=== PATIENT | female | born 1980 | race Native Hawaiian/Other Pacific Islander ===

== ENCOUNTER 2019-02-24 20:53 | Emergency (ER) | payer OTHER ==
[~2019-02-24] VITALS: Ht 165.1 cm; Wt 72.6 kg
[2019-02-24 22:16] LABS: PLATELET COUNT 174 K/uL (152-353)
[2019-02-24] MEDS ORDERED: PHENTERMINE37.5 MG PO (22:17)
[2019-02-24 22:29] LABS: POTASSIUM 3.9 mmol/L (3.6-5.2)
[2019-02-25 00:12] VITALS: BP 119/84; TEMP 98.2
== END 2019-02-25 00:17 | disposition home or self-care (01) ==
LOC: ED 20:53
PROVIDERS: Emergency Medicine Emergency Medical Services
DX: R41.82 Altered mental status, unspecified (principal)
CPT/HCPCS: 36415; 80053; 80307; 81000; 81025; 85027; 99283